=== PATIENT | female | born 1990 | race Caucasian/White ===

== ENCOUNTER 2020-05-12 17:44 | Emergency (ER) | payer SELFPAY ==
[~2020-05-12] VITALS: Ht 172.7 cm; Wt 59.0 kg
[2020-05-12] MEDS ORDERED: DIPHENHYDRAMINE 50MG/ML VIAL IM PRN (18:15)
[2020-05-12] MEDS ORDERED: LORAZEPAM 2MG/ML CPJ IM PRN (18:15)
[2020-05-12] MEDS ORDERED: HALOPERIDOL LACTATE 5MG/ML VIAL IM ONE (18:15)
[2020-05-12 18:16] LABS: BASOPHILS % 0.7 % (0.0-2.0); EOSINOPHILS % 2.7 % (0.0-5.0); HEMATOCRIT. 34.3 % (36.0-48.0); HEMOGLOBIN. 11.4 g/dL (12.0-16.0); MEAN PLATELET VOLUME 8.4 fl (7.4-10.4); MONOCYTES % 13.8 % (2.0-8.0); NEUTROPHILS % 58.8 % (40.0-76.0); PLATELET 289 x1000/uL (130-400); RED BLOOD CELL COUNT 3.81 mill/uL (4.2-5.4); RED CELL DISTRIBUTION WIDTH 15.1 % (11.6-14.6)
[2020-05-12 18:18] LABS: CLARITY URINE CLOUDY (CLEAR); COLOR URINE YELLOW (YELLOW); KETONES URINE TRACE (NEGATIVE); LEUKOCYTE ESTERASE URINE TRACE (NEGATIVE); NITRITE URINE NEGATIVE (NEGATIVE); OCCULT BLOOD URINE TRACE (NEGATIVE); PH URINE 6.5 (4.5-8.0); PROTEIN URINE TRACE (NEGATIVE); SPECIFIC GRAVITY URINE 1.032 (1.005-1.030)
[2020-05-12 18:23] LABS: CHLORIDE 112 mEq/L (98-107)
[2020-05-12 18:27] LABS: ETHANOL BLOOD < 10 mg/dL
[2020-05-12 18:28] LABS: *BARBITURATES SCREEN URINE NEGATIVE (NEGATIVE)
[2020-05-12 18:29] LABS: METHADONE URINE SCREEN NEGATIVE (NEGATIVE); OPIATES URINE SCREEN NEGATIVE (NEGATIVE)
[2020-05-12 18:49] LABS: *AMPHETAMINES SCREEN URINE PRESUMTIVE POSITIVE (NEGATIVE); *BENZODIAZEPINES SCREEN URINE PRESUMTIVE POSITIVE (NEGATIVE); *COCAINE SCREEN URINE PRESUMTIVE POSITIVE (NEGATIVE); CANNABINOID URINE SCREEN PRESUMTIVE POSITIVE (NEGATIVE); PHENCYCLIDINE URINE SCREEN PRESUMTIVE POSITIVE (NEGATIVE)
[2020-05-12] MEDS ORDERED: SODIUM CHLORIDE 0.9% 1,000 ML IV ONE (19:45)
[2020-05-12] MEDS ORDERED: LORAZEPAM 2MG/ML CPJ IV ONE (22:30)
[2020-05-12] MEDS ORDERED: HALOPERIDOL LACTATE 5MG/ML VIAL IM NR (23:30)
[2020-05-12 23:36] LABS: CREATINE KINASE 337 IU/L (26-192)
[2020-05-13 08:07] VITALS: BP 123/83
== END 2020-05-13 08:10 | disposition home or self-care (01) ==
LOC: EDBD 17:44 → ER 17:44
DX: T43.621A Poisoning by amphetamines, accidental (unintentional), initial encounter (principal); G92 Toxic encephalopathy; Z78.1 Physical restraint status; Y92.488 Other paved roadways as the place of occurrence of the external cause
CPT/HCPCS: 36415; 70450; 80053; 80305; 80320; 81003; 81025; 82550; 85025; 96361; 96372; 96374; 99285; J1200; J1630; J2060; G0480